=== PATIENT | male | born 1985 | race Caucasian/White ===

== ENCOUNTER 2018-04-24 18:55 | Emergency (ER) | payer MEDICAID ==
[~2018-04-24] VITALS: Ht 172.7 cm; Wt 68.2 kg
[2018-04-24] MEDS ORDERED: ALBU8.5H8 IH (19:12)
[2018-04-24] MEDS ORDERED: ALBUTEROL SULFATE HFA 90 MCG/PUFF 8 GM INHALER IH ONE (19:15)
[2018-04-24] MEDS ORDERED: IPRATROPIUM BROMIDE 0.5 MG/2.5 ML NEB SOLUTION NEB ONE (19:15)
[2018-04-24] MEDS ORDERED: ALBUTEROL SULFATE 5 MG/ML 20 ML NEB SOLN [BULK] NEB ONE (19:15)
[2018-04-24] MEDS ORDERED: PredniSONE 20 MG TABLET PO ONE (19:15)
[2018-04-24] MEDS ORDERED: 0.9% SODIUM CHLORIDE 5 ML NEB SOLUTION NEB ONE (19:19)
[2018-04-24 20:16] VITALS: BP 135/82
== END 2018-04-24 20:18 | disposition home or self-care (01) ==
LOC: EMS 18:57
DX: J45.901 Unspecified asthma with (acute) exacerbation (principal); F43.0 Acute stress reaction
CPT/HCPCS: 94644; 99285; J7512; J3535